=== PATIENT | female | born 2000 | race Caucasian/White ===

== ENCOUNTER 2022-06-15 13:10 | Emergency (ER) | payer MEDICAID ==
[~2022-06-15] VITALS: Ht 160 cm; Wt 68.0 kg
[2022-06-15 13:52] VITALS: BP 129/76
[2022-06-15] MEDS ORDERED: PENICILLIN G BENZATHINE 2.4 MMU/4 ML ML IM ONE ×2 (14:25→14:30)
[2022-06-15] MEDS ORDERED: IBUPROFEN 600 MG TABLET ONE (14:25)
[2022-06-15] MEDS ORDERED: IBUP-1955 PO (14:27)
[2022-06-15] MEDS ORDERED: IBUPROFEN 600 MG TABLET PO ONE (14:30)
== END 2022-06-15 14:41 | disposition home or self-care (01) ==
LOC: ER 13:19
DX: J02.9 Acute pharyngitis, unspecified (principal); Z60.2 Problems related to living alone
CPT/HCPCS: 99283; 96372; J0558

== ENCOUNTER 2024-11-28 09:38 | Emergency (ER) | payer MEDICAID ==
[~2024-11-28] VITALS: Ht 160 cm; Wt 68.0 kg
[~2024-11-28 09:38] MED LIST: IBUP-1955 PO
[2024-11-28 10:06] VITALS: TEMP 97.9
[2024-11-28] MEDS ORDERED: ACET-73 PO (11:57)
[2024-11-28] MEDS ORDERED: IBUP-1490 PO (11:57)
[2024-11-28 12:43] VITALS: BP 128/76; O2SAT 98
== END 2024-11-28 12:44 | disposition home or self-care (01) ==
LOC: ER 09:40
DX: S92.354A Nondisplaced fracture of fifth metatarsal bone, right foot, initial encounter for closed fracture (principal); W01.0XXA Fall on same level from slipping, tripping and stumbling without subsequent striking against object, initial encounter; Y93.89 Activity, other specified; Y92.89 Other specified places as the place of occurrence of the external cause; Y99.8 Other external cause status
CPT/HCPCS: 73630-TC